=== PATIENT | female | born 1995 | race Caucasian/White ===

== ENCOUNTER → 2023-10-06 11:10 | Outpatient (REF) | payer BC, SELFPAY | LOC: PNTC 11:10 | PROVIDERS: ATTENDING PHYSICIAN Obstetrics & Gynecology | DX: Z36.0 Encounter for antenatal screening for chromosomal anomalies (principal); Z36.82 Encounter for antenatal screening for nuchal translucency | CPT/HCPCS: 76815 ==

== ENCOUNTER → 2023-11-02 09:12 | Outpatient (REF) | payer BC, SELFPAY | LOC: PNTC 09:12 | PROVIDERS: ATTENDING PHYSICIAN Obstetrics & Gynecology | DX: O99.210 Obesity complicating pregnancy, unspecified trimester (principal); O34.10 Maternal care for benign tumor of corpus uteri, unspecified trimester | CPT/HCPCS: 76805 ==

== ENCOUNTER 2023-11-12 19:57 | Emergency (ER) | payer BC, SELFPAY ==
[2023-11-12 20:00] VITALS: BP 136/93
--- NOTE | 2023-11-12 20:40 | ED.GENMED ---
History of Present Illness
General
Chief Complaint: Abdominal Pain
Time Seen by Provider: 11/12/23 20:40
Travel History
Have you had any contact with someone who has COVID-19?: No
Do you have any symptoms of coronavirus? Fever > 100 degrees, chills, cough, shortness of breath, sore throat, loss of taste or smell, muscle aches, or headache?: No
History of Present Illness
History of Present Illness:
HPI: Patient is 17 weeks . This is her first . She presents with pain in that feels 'muscular' in nature in the central abdomen. However given the fact that she is she is concerned that it could be something
related so she came in here to ensure that 'the baby is okay'. She has no dysuria. She has no significant back pain. She has no pain at the upper abdomen.
EXAM:
GENERAL: Well appearing in no distress
HEENT: Moist oral mucosa
CARDIOVASCULAR: No murmurs, normal heart rate, regular rhythm, No chest wall tenderness
PULMONARY: No respiratory distress, breath sounds are clear and equal
ABDOMEN: Soft with no peritoneal signs, no significant tenderness, gravid uterus no
NEUROLOGIC: Excellent strength all extremities, no coordination deficits
PSYCHIATRIC: Appropriate mental status, normal insight and judgement
EXTREMITIES: Nontender, no edema, moves all extremities equally
SKIN: No rash, no lesions
TIME OF INITIAL ENCOUNTER: 8:45 PM
NUMBER AND COMPLEXITY OF PROBLEMS ADDRESSED AT THE ENCOUNTER
� Chronic conditions affecting care: Denies any past medical history.
� Acute Exacerbation and/or Progression of Chronic Illness: This is an acute problem
� Differential Diagnosis includes: related abdominal pain, doubt UTI as she has no UTI symptoms, demise
AMOUNT AND/OR COMPLEXITY OF DATA TO BE REVIEWED AND ANALYZED
� I performed an independent evaluation of and my interpretation is:
EKG:
CT:
X-rays:
Laboratory Studies:
Other: I personally performed a bedside ultrasound limited to the uterus� movement is noted and heart rate was 132
� Review of other/old records: No old records available for review
� Clinical information was obtained by an independent historian: None needed
� Prescriptions/Medications Considered but not given:
� Further testing considered but not performed:
RISK OF COMPLICATIONS AND/OR MORBIDITY OR MORTALITY OF PATIENT MANAGEMENT
� Social determinants of health affecting care: Lives at home, known to Dr. Campbell
� Discussion with other providers:
� Escalation of care including admission/observation vs risk of discharge considered: I performed bedside ultrasound that shows heart rate of 132 with intrauterine . Encouraged follow-up with [facility]. Her only reason
for visit was just to ensure that 'the baby is okay'.
Phy Exam
Physical Exam
Physical Exam:
See HPI
Course
Vital Signs
Initial and Last Documented VS:
Initial Vital Signs
Temp Pulse Resp BP Pulse Ox
98.1 F 79 18 136/93 98
11/12/23 20:00 11/12/23 20:00 11/12/23 20:00 11/12/23 20:00 11/12/23 20:00
Last Documented Vital Signs
Temp Pulse Resp BP Pulse Ox
98.1 F 79 18 136/93 98
11/12/23 20:00 11/12/23 20:00 11/12/23 20:00 11/12/23 20:00 11/12/23 20:00
*Critical Care Note
Total Time (30-74mins, 75-104mins- exclusive of procedures): Not Applicable
ED Attending Note
-
Portions of this chart may have been created with voice recognition software.� Occasional wrong word or��sound alike� substitutions may have occurred due to the inherent limitations of voice recognition software.
Discharge Plan
Departure
Patient Disposition: Home (Routine Discharge)
Date of Disposition: 11/12/23
Time of Disposition: 20:56
Patient with high blood pressure during this ER visit?: Yes
Discharge Problem:
related pelvic pain in second trimester, antepartum
Referrals:
Mily Campbell MD [Active] - Follow up in 2-3 days
Activity Restrictions/Additional Instructions:
I performed a bedside ultrasound that showed movement and a heart rate of 132 bpm�this is normal. I recommend that you follow-up with your [facility] doctor. Return here if worse.
Discharge Date and Time
Print Language: YI
[2023-11-12 21:04] VITALS: BP 125/86
== END 2023-11-12 21:10 | disposition home or self-care (01) ==
LOC: EMR 19:57
PROVIDERS: EMERGENCY PHYSICIAN Emergency Medicine; FAMILY PHYSICIAN Family Medicine
DX: O26.892 Other specified pregnancy related conditions, second trimester (principal); R10.2 Pelvic and perineal pain; Z3A.17 17 weeks gestation of pregnancy; R03.0 Elevated blood-pressure reading, without diagnosis of hypertension
CPT/HCPCS: 99284

== ENCOUNTER → 2023-11-29 09:06 | Outpatient (REF) | payer BC, SELFPAY | LOC: PNTC 09:06 | PROVIDERS: ATTENDING PHYSICIAN Obstetrics & Gynecology | DX: O99.210 Obesity complicating pregnancy, unspecified trimester (principal); O34.10 Maternal care for benign tumor of corpus uteri, unspecified trimester | CPT/HCPCS: 76811 ==

== ENCOUNTER → 2023-12-27 09:07 | Outpatient (REF) | payer BC, SELFPAY | LOC: PNTC 09:07 | PROVIDERS: ATTENDING PHYSICIAN Obstetrics & Gynecology | DX: O34.10 Maternal care for benign tumor of corpus uteri, unspecified trimester (principal); O99.210 Obesity complicating pregnancy, unspecified trimester | CPT/HCPCS: 76816 ==

== ENCOUNTER → 2024-01-24 17:16 | Outpatient (REF) | payer BC, SELFPAY | LOC: PNTC 17:16 | PROVIDERS: ATTENDING PHYSICIAN Obstetrics & Gynecology | DX: O99.210 Obesity complicating pregnancy, unspecified trimester (principal); O34.13 Maternal care for benign tumor of corpus uteri, third trimester | CPT/HCPCS: 76816 ==

== ENCOUNTER → 2024-02-21 08:45 | Outpatient (REF) | payer BC, SELFPAY | LOC: PNTC 08:45 | PROVIDERS: ATTENDING PHYSICIAN Obstetrics & Gynecology | DX: O99.210 Obesity complicating pregnancy, unspecified trimester (principal); O34.10 Maternal care for benign tumor of corpus uteri, unspecified trimester | CPT/HCPCS: 76816 ==

== ENCOUNTER → 2024-03-06 08:57 | Outpatient (REF) | payer BC, SELFPAY | LOC: PNTC 08:57 | PROVIDERS: ATTENDING PHYSICIAN Obstetrics & Gynecology | DX: O99.210 Obesity complicating pregnancy, unspecified trimester (principal); Z87.59 Personal history of other complications of pregnancy, childbirth and the puerperium | CPT/HCPCS: 59025; 76815 ==

== ENCOUNTER 2024-03-13 09:17 | Observation (INO) | payer BC, SELFPAY ==
[2024-03-13 09:33] VITALS: BP 142/80; BMI 43.6
[2024-03-13 10:05] LABS: Hematocrit 34.8 % (37.0-47.0); Hemoglobin 12.5 g/dL (12.0-16.0); Mean Corp Hgb Conc. 35.9 g/dL (33.0-37.0); Mean Corpuscular Volume 86.4 fL (81.0-99.0); Mean Platelet Volume 9.3 fL (7.4-10.4); Platelet Count 340 10^3/uL (130-400); Red Blood Cell Count 4.03 10^6/uL (4.20-5.40); Red Cell Dist. Width 13.4 % (11.5-14.5); White Blood Cell Count 12.5 10^3/uL (4.8-10.8)
[2024-03-13 10:17] LABS: Urine Albumin Negative (Neg - Trace); Urine Bilirubin Negative (Negative); Urine Character Clear (Clear); Urine Color Yellow; Urine Glucose 2+ (Negative); Urine Ketone Negative (Negative); Urine Leukocyte Negative (Negative); Urine Nitrite Negative (Negative); Urine Occult Blood Negative (Negative); Urine Urobilinogen Negative (Neg - 1+); Urine pH 6.5 (5.0-9.0)
[2024-03-13 10:30] LABS: ALT (SGPT) 13 U/L (0-35); AST (SGOT) 22 U/L (14-36); Albumin 3.5 g/dl (3.5-5.0); Alkaline Phosphatase 114 U/L (38-126); Blood Urea Nitrogen 5 mg/dl (7-17); Calcium 9.6 mg/dl (8.4-10.2); Carbon Dioxide 20 mmol/L (22-30); Chloride 108 mmol/L (98-107); Estimated Creatinine Clearance > 125 ml/min; Glucose 173 mg/dl (70-99); Potassium 3.8 mmol/L (3.5-5.1); Sodium 134 mmol/L (135-145); Total Bilirubin 0.3 mg/dl (0.2-1.3); Total Protein 6.5 g/dl (6.3-8.2); Uric Acid 3.6 mg/dl (2.5-6.2); eGFR > 60.00
[2024-03-13 10:43] LABS: Protein/creatinine Ratio 0.8; Urine Protein 16 mg/dl
== END 2024-03-13 11:45 | disposition home or self-care (01) ==
LOC: PNTC-IN 09:17
PROVIDERS: ADMITTING PHYSICIAN Obstetrics & Gynecology; ATTENDING PHYSICIAN Obstetrics & Gynecology
DX: O12.13 Gestational proteinuria, third trimester (principal); Z3A.35 35 weeks gestation of pregnancy; O99.213 Obesity complicating pregnancy, third trimester; O34.13 Maternal care for benign tumor of corpus uteri, third trimester; D25.9 Leiomyoma of uterus, unspecified
CPT/HCPCS: 59025; 76815; 80053; 81003; 82570; 84156; 84550; 85027; G0378

== ENCOUNTER 2024-03-16 12:31 | Observation (INO) | payer BC, SELFPAY ==
[2024-03-16 13:21] VITALS: BP 125/86; BMI 43.8
[2024-03-16 13:24] LABS: Hematocrit 36.5 % (37.0-47.0); Hemoglobin 12.9 g/dL (12.0-16.0); Mean Corp Hgb Conc. 35.3 g/dL (33.0-37.0); Mean Corpuscular Hgb 30.2 pg (27.0-31.0); Mean Corpuscular Volume 85.5 fL (81.0-99.0); Mean Platelet Volume 9.2 fL (7.4-10.4); Platelet Count 366 10^3/uL (130-400); Red Blood Cell Count 4.27 10^6/uL (4.20-5.40); Red Cell Dist. Width 13.4 % (11.5-14.5); White Blood Cell Count 11.9 10^3/uL (4.8-10.8)
[2024-03-16 13:29] LABS: Urine Albumin Negative (Neg - Trace); Urine Bilirubin Negative (Negative); Urine Character Clear (Clear); Urine Color Yellow; Urine Glucose Negative (Negative); Urine Ketone Negative (Negative); Urine Leukocyte Negative (Negative); Urine Nitrite Negative (Negative); Urine Occult Blood Negative (Negative); Urine Specific Gravity 1.015 (<1.030); Urine Urobilinogen Negative (Neg - 1+)
[2024-03-16 13:42] LABS: ALT (SGPT) 12 U/L (0-35); AST (SGOT) 25 U/L (14-36); Albumin 3.7 g/dl (3.5-5.0); Alkaline Phosphatase 131 U/L (38-126); Blood Urea Nitrogen 7 mg/dl (7-17); Calcium 9.7 mg/dl (8.4-10.2); Carbon Dioxide 20 mmol/L (22-30); Chloride 110 mmol/L (98-107); Estimated Creatinine Clearance > 125 ml/min; Glucose 81 mg/dl (70-99); Potassium 4.2 mmol/L (3.5-5.1); Sodium 134 mmol/L (135-145); Total Bilirubin 0.3 mg/dl (0.2-1.3); Total Protein 6.9 g/dl (6.3-8.2); eGFR > 60.00
[2024-03-16] MEDS: TYLENOL 1000 MG PO (13:46)
[2024-03-16 13:59] LABS: Protein/creatinine Ratio 0.4; Urine Protein 19 mg/dl
== END 2024-03-16 15:10 | disposition home or self-care (01) ==
LOC: PNTC-IN 12:31
PROVIDERS: ADMITTING PHYSICIAN Obstetrics & Gynecology
DX: O14.03 Mild to moderate pre-eclampsia, third trimester (principal); O36.8130 Decreased fetal movements, third trimester, not applicable or unspecified; R51.9 Headache, unspecified; Z3A.35 35 weeks gestation of pregnancy
CPT/HCPCS: 59025; 80053; 81003; 82570; 84156; 85027; 86850; 86900; 86901; G0378

== ENCOUNTER → 2024-03-20 08:55 | Outpatient (REF) | payer BC, SELFPAY | LOC: PNTC 08:55 | PROVIDERS: ATTENDING PHYSICIAN Obstetrics & Gynecology | DX: O99.210 Obesity complicating pregnancy, unspecified trimester (principal); Z87.42 Personal history of other diseases of the female genital tract | CPT/HCPCS: 59025; 76816 ==

== ENCOUNTER 2024-03-26 19:26 | Inpatient (IN) | payer BC, SELFPAY ==
[2024-03-26 19:57] VITALS: BP 129/85; BMI 43.8
[2024-03-26 20:24] LABS: % Basophils 0.4 % (0-2); % Eosinophils 0.6 % (0-6); % Immature Granulocytes 0.5 % (0-0.5); % Monocytes 7.3 % (1.7-9.3); % Neutrophils 67.2 % (42.2-75.2); Absolute Basophils 0.1 10^3/uL (0-0.2); Absolute Eosinophils 0.1 10^3/uL (0-0.7); Absolute Immature Granulocytes 0.1 10^3/uL (0-0.05); Absolute Lymphocytes 3.3 10^3/uL (1.2-3.4); Absolute Neutrophils 9.3 10^3/uL (1.4-6.5); Hematocrit 36.3 % (37.0-47.0); Mean Corp Hgb Conc. 35.8 g/dL (33.0-37.0); Mean Corpuscular Hgb 31.5 pg (27.0-31.0); Mean Corpuscular Volume 87.9 fL (81.0-99.0); Mean Platelet Volume 9.4 fL (7.4-10.4); Nucleated Red Blood Cells % 0 %; Platelet Count 343 10^3/uL (130-400); Red Blood Cell Count 4.13 10^6/uL (4.20-5.40); Red Cell Dist. Width 13.3 % (11.5-14.5); White Blood Cell Count 13.8 10^3/uL (4.8-10.8)
[2024-03-26 20:37] LABS: ALT (SGPT) 12 U/L (0-35); AST (SGOT) 23 U/L (14-36); Albumin 3.8 g/dl (3.5-5.0); Alkaline Phosphatase 148 U/L (38-126); Blood Urea Nitrogen 6 mg/dl (7-17); Calcium 9.9 mg/dl (8.4-10.2); Carbon Dioxide 18 mmol/L (22-30); Chloride 109 mmol/L (98-107); Estimated Creatinine Clearance > 125 ml/min; Glucose 81 mg/dl (70-99); Potassium 3.8 mmol/L (3.5-5.1); Sodium 134 mmol/L (135-145); Total Bilirubin 0.3 mg/dl (0.2-1.3); Total Protein 6.8 g/dl (6.3-8.2); eGFR > 60.00
[2024-03-26] MEDS: CYTOTEC 25 MICROGRAM VAG (20:43)
[2024-03-27] MEDS: CYTOTEC 50 MICROGRAM PO ×2 (01:28→07:28)
[2024-03-27] MEDS: CYTOTEC PO ×3 (07:06→17:34)
[2024-03-27] MEDS: PHENERGAN 50.5 MG IV (12:36)
[2024-03-27] MEDS: MORPHINE SULFATE 2 MG IV (12:36)
[2024-03-27] MEDS: PITOCIN 30 UNITS/NSS 500 ML IV (17:39)
[2024-03-27] MEDS: FENTANYL/BUPIVACAINE 100 EPIDURAL (21:09)
[2024-03-27] MEDS: SUBLIMAZE 100 MCG EPIDURAL (21:09)
[2024-03-28] MEDS: FENTANYL/BUPIVACAINE 100 EPIDURAL (04:19)
[2024-03-28] MEDS: TYLENOL 1000 MG PO (05:02)
[2024-03-28] MEDS: ANCEF 10 IV (05:02)
[2024-03-28] MEDS: BICITRA 30 ML PO (05:02)
[2024-03-28 05:40] LABS: Cord ABG Comment CORD BLOOD
[2024-03-28 05:41] LABS: B.E. Cord ABG -3.9 mMOL/L; HCO3 Cord ABG 23.5 mmol/L; O2 Saturation % Cord ABG 19.1 %; PCO2 Cord ABG 50 mmHg; PO2 Cord ABG 12 mmHg; pH Cord ABG 7.28
[2024-03-28 05:45] LABS: B.E. Cord ABG -4.6 mMOL/L; HCO3 Cord ABG 23.3 mmol/L; O2 Saturation % Cord ABG 22.8 %; PCO2 Cord ABG 52 mmHg; PO2 Cord ABG 12 mmHg; pH Cord ABG 7.26
[2024-03-28] MEDS: TORADOL 15 MG IV ×2 (11:29→17:27)
[2024-03-29] MEDS: TORADOL 15 MG IV ×2 (00:03→06:03)
[2024-03-29 04:52] LABS: Hemoglobin 10.8 g/dL (12.0-16.0); Mean Corp Hgb Conc. 34.8 g/dL (33.0-37.0); Mean Corpuscular Hgb 30.6 pg (27.0-31.0); Mean Corpuscular Volume 87.8 fL (81.0-99.0); Mean Platelet Volume 9.1 fL (7.4-10.4); Platelet Count 308 10^3/uL (130-400); Red Blood Cell Count 3.53 10^6/uL (4.20-5.40); Red Cell Dist. Width 13.9 % (11.5-14.5); White Blood Cell Count 18.4 10^3/uL (4.8-10.8)
[2024-03-29] MEDS: PRENATAL PLUS 1 TABLET PO (07:41)
--- NOTE | 2024-03-29 07:57 | W.PN.ANS.POP ---
Anesthesia Post Operative
- Anesthesia Post Op Note
Vital Signs Stable-See Nursing Note: Yes
Airway Patent: Yes
Adequate Pain Control: Yes
Change in Mental Status: No
Current Postoperative Nausea & Vomiting: No
Anesthesia Complications: No
General Anesthetic Recall: No
Unplanned Admission: No
Post Op Hydration Adequate: Yes
[2024-03-29] MEDS: MOTRIN 600 MG PO ×2 (11:57→20:25)
[2024-03-29] MEDS: SENOKOT-S 1 TABLET PO (18:21)
[2024-03-30] MEDS: MOTRIN 600 MG PO (07:11)
[2024-03-30] MEDS: PRENATAL PLUS 1 TABLET PO (07:12)
--- NOTE | 2024-03-30 10:58 | W.DS.TRANS ---
DC Summary - Director Ship
-
Discharge Instructions:
Discharge Diagnosis/Procedures 37+ wks delivered by Primary csection;
preeclampsia without severe features
Diet Regular
Activity No strenuous activity
Driving Restrictions No driving for 2 weeks
Bathing Restrictions OK to Shower
Instructions:
Stand-Alone Forms: LDRP Delivery
LDRP Hypertensive Disorders
Changes to Home Medications: No
Discharge Medications:
DC Medications w/original date entered in [facility]
prenat.vits,rufino,qnd-rwkz-[id number] 1 tab DAILY 03/13/24
acetaminophen 325 mg tablet 650 mg (2 x 325 mg) PO Q4HPRN PRN mild pain #0 tabs 03/30/24
ibuprofen 600 mg tablet 600 mg PO Q6HPRN PRN cramps #0 tabs 03/30/24
Home Medication Changes
Pending Results: Yes
Additional Pending Results:
placental pathology
Total time spent discharging patient (in min): 30
[2024-03-31 14:44] LABS: Syphilis/T. pallidum Ab Reflex Negative (Negative)
== END 2024-03-30 13:18 | disposition home or self-care (01) | DRG 788 ==
LOC: LDRP 19:26
PROVIDERS: Obstetrics & Gynecology; ADMITTING PHYSICIAN Obstetrics & Gynecology
PROC: 3E0P7GC Introduction of Other Therapeutic Substance into Female Reproductive, Via Natural or Artificial Opening (ICD-10-PCS; 2024-03-26)
PROC: 3E033VJ Introduction of Other Hormone into Peripheral Vein, Percutaneous Approach (ICD-10-PCS; 2024-03-26)
PROC: 10D00Z1 Extraction of Products of Conception, Low, Open Approach (ICD-10-PCS; 2024-03-28)
PROC: 4A1HXCZ Monitoring of Products of Conception, Cardiac Rate, External Approach (ICD-10-PCS; 2024-03-28)
DX: O14.04 Mild to moderate pre-eclampsia, complicating childbirth (principal); O69.3XX0 Labor and delivery complicated by short cord, not applicable or unspecified; O76 Abnormality in fetal heart rate and rhythm complicating labor and delivery; O34.13 Maternal care for benign tumor of corpus uteri, third trimester; O99.02 Anemia complicating childbirth; O99.214 Obesity complicating childbirth; O99.283 Endocrine, nutritional and metabolic diseases complicating pregnancy, third trimester; E66.01 Morbid (severe) obesity due to excess calories; E28.2 Polycystic ovarian syndrome; D25.9 Leiomyoma of uterus, unspecified; Z37.0 Single live birth; Z3A.37 37 weeks gestation of pregnancy
CPT/HCPCS: 88307; 80053; 82803; 85025; 85027; 86780; 86850; 86900; 86901